=== PATIENT | male | born 1950 | race Caucasian/White ===

== ENCOUNTER → 2017-01-28 13:01 | Outpatient (CLI) | payer MEDICARE, OTHER ==
[2015-01-31 07:36] VITALS: BMI 29.9
== END | disposition home or self-care (01) ==
LOC: D.US 13:01
DX: M79.652 Pain in left thigh (principal)

== ENCOUNTER 2017-03-22 16:45 | Emergency (ER) | payer MEDICARE, OTHER ==
[2015-01-31 07:36] VITALS: BMI 29.9
== END 2017-03-22 20:55 | disposition home or self-care (01) ==
LOC: D.ER 16:45
DX: M79.605 Pain in left leg (principal); M62.838 Other muscle spasm; I10 Essential (primary) hypertension; Z86.718 Personal history of other venous thrombosis and embolism; M10.9 Gout, unspecified

== ENCOUNTER → 2017-08-15 14:41 | Outpatient (CLI) | payer MEDICARE, OTHER ==
[2015-01-31 07:36] VITALS: BMI 29.9
[~2017-08-15 14:41] MED LIST: AVAPRO150 MG PO; CIPRO500 MG PO; FLOMAX0.4 MG PO; OXYCODONE HCL5 MG PO; TORADOL10 MG PO; TYLENOL #4 W/CO1 TAB PO; UROCIT-K10 MEQ PO; ZYLOPRIM300 MG PO
== END | disposition home or self-care (01) ==
LOC: D.CT 14:41
DX: R10.9 Unspecified abdominal pain (principal)

== ENCOUNTER 2017-08-19 07:00 | Day surgery (SDC) | payer MEDICARE, OTHER ==
[2017-08-16 13:37] LABS: HEMATOCRIT 44.1 % (42.0-54.0); HEMOGLOBIN 14.4 g/dL (13.5-17.5); MCH 29.9 pg (26.0-34.0); MCHC 32.7 g/dL (31.0-37.0); MCV 91.7 fL (80.0-100.0); MEAN PLATELET VOLUME 10.1 fL (7.4-10.4); RBC 4.81 10x6/uL (4.20-6.10); RDW 13.3 % (11.5-14.5)
[~2017-08-19 07:00] MED LIST changes: -CIPRO500 MG PO; -OXYCODONE HCL5 MG PO; -UROCIT-K10 MEQ PO
[2017-08-19 08:08] VITALS: BP 132/83; BMI 29.9
--- NOTE | 2017-08-19 11:30 | NUR ---
PATIENT'S SPOUSE CONTINUES TO QUESTION REASONING FOR PROCEDURE NOT BEING DONE PLANNED FAR KIDNEY STONE BEING LITHOTRIPSIED PLANNED. CALL PLACED TO DR TOUSSAINT'S OFFICE, THIS NURSE SPEAKS WITH DR TOUSSAINT WHO EXPLAINS THAT PATIENT "HAS KIDNEY STONES IN BOTH KIDNEYS AND THEY CAN'T BOTH BE DONE AT THE SAME TIME SO I'M GIVING HIM MEDICATION THAT SHOULD DISSOLVE THEM SO HE NEEDS TO JUST BE PATIENT. IF HE HAS SYMPTOMS OF KIDNEY STONES WHILE OUT OF TOWN HE WILL NEED TO SEEK EMERGENCY CARE IN THAT CITY." THIS MESSAGE IS RELAYED TO PATIENT AND SPOUSE BY THIS NURSE. SPOUSE CONTINUES TO EXPRESS DISPLEASURE THAT "WE WERE HURRIED IN HERE TO GET THIS TAKEN CARE OF AND THEN NOTHING WAS TAKEN CARE OF." THIS NURSE EXPLAINS TO PATIENT THAT SOMETIMES CONDITIONS CHANGE AND WHAT IS INDICATED TO BE DONE CHANGES. SPOUSE PLEASANT BUT QUESTIONING.
--- NOTE | 2017-08-19 12:00 | NUR ---
PATIENT DISCHARGED HOME VIA WHEELCHAIR TO PRIVATE VEHICLE WITH SPOUSE AFTER DISCHARGE INSTRUCTIONS REVIEWED WITH SPOUSE AND PATIENT
[2017-08-19] MEDS ORDERED: UROCIT-K10 MEQ PO (12:01)
--- NOTE | 2017-08-19 13:39 | OP ---
PATIENT NAME: AMOL HUERTA MEDICAL RECORD: [id number] :49 LOCATION:[facility] ADMISSION DATE: SURGEON: PETER TOUSSAINT MD DATE OF OPERATION: 08/19/2017 SURGEON: Peter Toussaint MD ANESTHESIA: General anesthesia by Lorena Mota CRNA. PREOPERATIVE DIAGNOSIS: Left distal ureteral 9.5-mm stone. PROCEDURE: Cystoscopy and bladder stone removal. FINDINGS: Radiolucent stones. Left ureteral stone had passed into the bladder. Vascular prostatic urethra. SPECIMENS: Left ureteral stone/bladder stone. ESTIMATED BLOOD LOSS: None. CLINICAL HISTORY: This is a 66-year-old male, who has not had a previous history of kidney stone. Two weeks ago, he developed left-sided flank pain. He saw Dr. Lagos and a CT scan was performed. This showed a 9.5-mm stone in the left distal ureter. There may also be some small stones in the kidney. He does have a history of gout, for which he is taking allopurinol. He is not allergic to any medications. We scheduled him to have left ureteroscopy with holmium laser lithotripsy to remove the stone. The patient was given Ancef 2 grams IV micromatic hone operator to the OR. DESCRIPTION OF PROCEDURE: The patient was given induction of general anesthesia. He was then placed in dorsal lithotomy position and prepped and draped. Lidocaine jelly was inserted into the urethra. A 20-Bengali cystoscope with 30-degree lens was used for visualization. Fluoroscopy prior to the cystoscopy could not reveal any radiodense stones in the kidney or in the left UV junction. There is a pelvic calcification on the right side, which is fixed. Going in with the cystoscope, the penile urethra was nonobstructive. Prostatic urethra was quite vascular and actually started to bleed a bit once we passed beside it with the scope. Bladder neck is tight. Going into the bladder, single ureteral orifices were seen. No bladder tumors were seen. The stone was actually sitting on the floor of the bladder. We put a 4-wire 0-tip basket in and retrieve the stone with the basket. The bladder was then emptied through the scope and then the scope was removed. The stone will be sent for stone analysis. Since his stones are likely to be uric acid, I will start him on potassium citrate to dissolve any residual stone in his kidneys. He will come and see me in followup in the office on Saturday to check his urine pH. TRANSINT:[id number] Voice Confirmation ID: [id number] DOCUMENT ID: [id number] OPERATIVE REPORT [id number] AMOL HUERTA ROBERT S MD at 1339 CC: [id number] DICTATION DATE: 08/19/17 1008 LABORATORY SPECIALIST: 08/19/17 [id number] [place] [address]
[2017-08-29 16:14] LABS: CALCULI - CA OXALATE MONOHYDR 93 % (()); CALCULI - COLOR Brown (()); CALCULI - SIZE 8x5x5 mm (())
[2017-09-17] MEDS ORDERED: CIPRO500 MG PO (13:22)
[2017-09-17] MEDS ORDERED: OXYCODONE HCL5 MG PO (13:24)
== END 2017-08-19 12:00 | disposition home or self-care (01) ==
LOC: D.OPS 07:00 → D.PAN 09:00 → D.OPS 12:00
PROVIDERS: Anesthesiology; Urology
DX: N21.0 Calculus in bladder (principal); I10 Essential (primary) hypertension; Z01.812 Encounter for preprocedural laboratory examination

== ENCOUNTER → 2017-09-11 09:10 | Outpatient (CLI) | payer MEDICARE, OTHER ==
[2017-08-19 08:08] VITALS: BMI 29.9
[~2017-09-11 09:10] MED LIST changes: +CIPRO500 MG PO; +OXYCODONE HCL5 MG PO; +UROCIT-K10 MEQ PO
== END | disposition home or self-care (01) ==
LOC: D.CT 09:10
DX: N20.0 Calculus of kidney (principal)

== ENCOUNTER 2017-09-16 12:56 | Emergency (ER) | payer MEDICARE, OTHER ==
[~2017-09-16 12:56] MED LIST changes: -CIPRO500 MG PO; -OXYCODONE HCL5 MG PO
[2017-09-16 13:35] LABS: ALBUMIN 4.2 g/dL (3.4-5.0); ANION GAP 13.1 mmol/L (8-16); BILIRUBIN - TOTAL 0.99 mg/dL (0.2-1.3); CALCIUM 9.2 mg/dL (8.5-10.1); CARBON DIOXIDE 24.2 mmol/L (21.0-32.0); CREATININE - SERUM 1.1 mg/dL (0.6-1.3); POTASSIUM - SERUM 4.3 mmol/L (3.5-5.1); PROTEIN - SERUM 7.8 g/dL (6.4-8.2)
[2017-09-16 13:38] LABS: BASOPHILS 0.3 % (0-2); EOSINOPHILS 0.2 % (0-7); HEMATOCRIT 47.9 % (42.0-54.0); HEMOGLOBIN 16.2 g/dL (13.5-17.5); IMMATURE GRANULOCYTES 0.3 % (0-5); LYMPHOCYTES 7.6 % (15-50); MCH 29.9 pg (26.0-34.0); MCHC 33.8 g/dL (31.0-37.0); MCV 88.5 fL (80.0-100.0); MEAN PLATELET VOLUME 10.5 fL (7.4-10.4); MONOCYTES 6.9 % (2-11); NEUTROPHILS 84.7 % (40-80); PLATELET COUNT 179 10x3/uL (130-400); RBC 5.41 10x6/uL (4.20-6.10); RDW 13.5 % (11.5-14.5); WBC 9.1 10x3/uL (4.8-10.8)
[2017-09-16 14:33] LABS: APPEARANCE CLOUDY (CLEAR); BILIRUBIN NEGATIVE (NEGATIVE); COLOR YELLOW (YELLOW); GLUCOSE NEGATIVE (NEGATIVE); KETONE LARGE mg/dL (NEGATIVE); NITRITE NEGATIVE (NEGATIVE); PROTEIN NEGATIVE (NEGATIVE); SPECIFIC GRAVITY 1.015 (1.005-1.020); UROBILINOGEN NORMAL (NORMAL)
[2017-09-16 14:34] LABS: BACTERIA FEW /hpf (NONE SEEN); EPITHELIAL CELLS 0-5 /hpf (0-5); MUCUS <1+ /lpf (NONE SEEN); RED CELLS - URINE >50 /hpf (0-5)
[2017-09-17] MEDS ORDERED: CIPRO500 MG PO (13:22)
[2017-09-17] MEDS ORDERED: OXYCODONE HCL5 MG PO (13:24)
== END 2017-09-16 16:48 | disposition home or self-care (01) ==
LOC: D.ER 12:56
PROVIDERS: Emergency Medicine
DX: N20.1 Calculus of ureter (principal)

== ENCOUNTER 2017-09-18 09:06 | Day surgery (SDC) | payer MEDICARE, OTHER ==
[~2017-09-18] VITALS: Ht 182.9 cm; Wt 104.8 kg
[~2017-09-18 09:06] MED LIST changes: +CIPRO500 MG PO; +OXYCODONE HCL5 MG PO
[2017-09-18 10:24] VITALS: BP 112/62; Ht 182.9 cm; Wt 104.8 kg
--- NOTE | 2017-09-18 15:58 | NUR ---
1555--PT VOIDS, IV EMERY'Tabatha WILKS RN
--- NOTE | 2017-09-18 16:13 | NUR ---
1610--DISCHARGE INSTRUCTIONS GIVEN, PT VERBALIZES UNDERSTANDING. PT OFF UNIT VIA KYM. LASHAUN MAGANA
--- NOTE | 2017-09-18 16:52 | OP ---
PATIENT NAME: AMOL HUERTA MEDICAL RECORD: [id number] :49 LOCATION:[facility] ADMISSION DATE: SURGEON: PETER TOUSSAINT MD DATE OF OPERATION: 09/18/2017 SURGEON: Peter Toussaint MD ANESTHESIA: General anesthesia by Dr. Valenzuela. PREOPERATIVE DIAGNOSIS: Right proximal ureteral 5-mm stone. PROCEDURE: Cystoscopy, right nephroscopy and stone extraction, right ureteral stent insertion 6-Croatian x 26 cm with string attached. FINDINGS: Radiolucent stone. One 5-mm stone in the proximal ureter pushed back into the kidney. Small stone debris in the lower pole of the kidney. ESTIMATED BLOOD LOSS: None. CLINICAL HISTORY: This is a 66-year-old male with a history of gout and kidney stones. He had a stone removed from the left UV junction about a month ago. This was 1 cm in size. He is known to have a 5-7 mm stone in the right mid pole. There are also some smaller punctate stones in both kidneys. The stones were radiolucent on fluoroscopy and I assume given his history of gout that he may have uric acid stones. Therefore, he was treated with alkalinization of the urine. His stone analysis, however, came back with 100% calcium oxalate stones. Therefore, these stones will not dissolve. In the interim, he developed right flank pain. The stone in the kidney went down into the proximal ureter. This was confirmed by CT scan, which shows a 5-mm stone in the proximal right ureter. He comes now to have this stone removed. DESCRIPTION OF PROCEDURE: The patient was given induction of general anesthetic. He is not allergic to any medication and he was given 2 grams of Ancef missing persons investigator to the OR. He was placed in dorsal lithotomy position and prepped and draped. A 21-Croatian cystoscope was used for visualization with a 30-degree lens. Penile urethra was normal. Prostatic urethra is nonobstructive in terms of the lateral lobes. The bladder neck was somewhat elevated. He has single ureteral orifices on each side. No bladder tumors were seen. Again, we could not see his stone on fluoroscopy. An open-ended ureteral catheter was placed into the right ureteral orifice and a retrograde pyelogram was performed using diluted contrast. This showed a filling defect in the proximal ureter and with ongoing injection of contrast, the stone was seen to be pushed back into the kidney. We placed a Sensor wire through the lumen of the ureteral catheter up to the renal pelvis level. The ureteral catheter was then removed entirely as was the cystoscope, leaving the Sensor wire in place. We then inserted a ureteral access sheath up to the UP junction level. Then, the stylet of the ureteral access sheath as well as the Sensor wire were entirely removed, leaving the ureteral access sheath in the ureter. A flexible ureteroscope was then placed up the ureteral access sheath and we entered into the kidney. Nephroscopy was performed. The lower pole has some stone debris, but no obvious stone. The stone that we were interested in was in the mid pole in one of the mid pole calices. A 0-tip basket was placed and the stone was entrapped. The stone was too large to pass through the lumen of the ureteral access sheath. Therefore, the unit, the ureteroscope, stone and basket and the ureteral access sheath were all withdrawn. In this way, the stone was retrieved and sent to OPERATIVE REPORT [id number] AMOL HUERTA pathology for stone analysis. The cystoscope was then reintroduced into the bladder. A Sensor wire was placed into the right ureteral orifice up to the renal pelvis. A 6-Croatian x 26-cm ureteral stent was placed. Once the stent was in position, the wire was withdrawn entirely. The proximal end was seen to coil within the renal pelvis. The distal end was pushed into the bladder using a pusher. The string on the distal end is maintained and will hang out of the urethra and will facilitate removal of the stent in the near future. The bladder was fully emptied and then the scope was removed. The patient will be brought to the recovery room and be discharged home today. TRANSINT:[id number] Voice Confirmation ID: [id number] DOCUMENT ID: [id number] PETER TOUSSAINT MD at 1652 CC: [id number] DICTATION DATE: 09/18/17 1442 BUNDLE TIER AND LABELER: 09/18/17 1520 [facility] 09/18/17 [id number] [place] [address]
[2017-09-27 11:17] LABS: CALCULI - CA OXALATE MONOHYDR 90 % (()); CALCULI - CALCIUM PHOSPHATE 10 % (()); CALCULI - COLOR Brown (()); CALCULI - SIZE 5x4x3 mm (())
== END 2017-09-18 16:10 | disposition home or self-care (01) ==
LOC: D.OPS 09:06 → D.PAN 11:30 → D.OPS 16:10
PROVIDERS: Urology
DX: N20.2 Calculus of kidney with calculus of ureter (principal); Z87.891 Personal history of nicotine dependence; I10 Essential (primary) hypertension; Z01.812 Encounter for preprocedural laboratory examination